=== PATIENT | male | born 1985 | race Caucasian/White ===

== ENCOUNTER 2019-12-20 08:35 | Emergency (ER) | payer SELFPAY ==
[~2019-12-20] VITALS: Ht 180.3 cm; Wt 79.0 kg
[2019-12-20 09:08] VITALS: BP 139/71
[2019-12-20] MEDS ORDERED: SULF1TAB49 PO (12:13)
[2019-12-20] MEDS ORDERED: CEPH500C5 PO (12:13)
[2019-12-20] MEDS ORDERED: NO HOME MEDS (12:42)
== END 2019-12-20 09:19 | disposition left against medical advice (07) ==
LOC: ER 08:35
DX: L03.113 Cellulitis of right upper limb (principal); R50.9 Fever, unspecified; R05 Cough; F15.90 Other stimulant use, unspecified, uncomplicated; Z59.0 Homelessness
CPT/HCPCS: 99281

== ENCOUNTER 2025-08-16 18:48 | Emergency (ER) | payer MEDICARE, MEDICAID ==
[~2025-08-16] VITALS: Ht 180.3 cm; Wt 142.2 kg
[~2025-08-16 18:48] MED LIST: HYDR-4383 PO
--- NOTE | 2025-08-16 20:39 | RADIOLOGY REPORT ---
EXAM: DI CHEST,SINGLE VIEW HISTORY: [facility] TECHNIQUE: 1 view of the chest COMPARISON: None FINDINGS/IMPRESSION: LUNGS: No pleural effusion, consolidation, or pneumothorax. MEDIASTINUM: Unremarkable. BONES: No acute osseous abnormality. OTHER: None.
--- NOTE | 2025-08-16 21:13 | Physician Documentation ---
History of Present Illness ~ Chief Complaint: Cold, cough & congestion Stated Complaint: LUNG PAIN Time Seen by MD: 21:11 Primary Medical Doctor: CECI MCKEON Mode of Arrival: POV HPI Patient presents to the emergency room with a cough cold and congestion. He states he has seen by his primary a couple of weeks ago and was prescribed an antibiotic and feels it may have gotten better but then symptoms returned. He states he normally smokes and vapes but quit this past month because of his cough. Cough has been going on for a month. Medication Reconciliation Allergies: Coded Allergies: No Known Allergies (Unverified , 08/16/25) Scheduled PRN Hydrocodone/Acetaminophen ([place] 5-325 Tablet), 1 TAB PO Q6H PRN for moderate pain 4-6 Past Medical History Past Medical History: No Pertinent History Past Surgical History: no surgical history Drug Use: methamphetamine Lives In: Homeless Review of Systems ROS All review of systems negative except as per HPI Physical Exam Vital Signs: Temperature: 98.2, Source: Oral, Heart Rate: 92, Respiratory Rate: 16, BP: 144/91, Pulse Oximetry: 98, Weight: 142.200 Oxygen Flow Rate: 0 Physical Exam General: Patient is awake, alert, oriented x4 in no acute distress and well appearing.~ Head: Normocephalic and atraumatic. Eyes: Conjunctival normal. EOMI. PERRL. ENT: Mucous membranes moist. Neck: Supple, trachea is midline. Chest: Clear to auscultation bilaterally without rales, rhonchi, or wheezes. There is no accessory muscle use or retractions. Cardiac: RRR without murmurs, gallops, or rubs. Progress Results/Orders Results/Orders Orders - JEZ KIM MD Chest,Single View (08/16/25 20:15) Completed Orders - JEZ KIM MD Chest,Single View (08/16/25 20:15) Vital Signs 08/16/25 08/16/25 08/16/25 18:54 20:39 20:39 Temp 98.2 98.2 Pulse 114 92 Resp 16 16 B/P (MAP) 132/91 144/91 (108) Pulse Ox 96 98 O2 Flow Rate 0 0 Laboratory Tests Test 08/16/25 19:03 Glucometer 344 H Medical Decision Making Additional information obtaine: old records Findings Patient presents to the emergency room with cough cold congestion. Actively sneezing and coughing while I am in the room. Chest x-ray is clear. He had not feel emergent labs are necessary. Given length of time and reported worsening symptoms I will treat with antibiotic. Differential Dx:Considerations: Include: Allergic rhinitis, Influenza, Otitis media, Peritonsillar abscess, Pharyngitis-Diphtheria, Pharyngitis-Streptoccal, Pharyngitis-Viral, Pneumonia, Pnuemonitis, Sinusitis, URI, Other Departure Disposition: HOME / SELF CARE / HOMELESS Impression: Primary Impression: Acute respiratory infection Condition: Stable Discharge Instructions: Upper Respiratory Infection, Adult Referrals: NO PRIMARY CARE PROVIDER (PCP) Prescriptions Levofloxacin (Levofloxacin) 500 Mg Tablet 1 TAB PO DAILY for 7 Days, #7 TAB Prov: JEZ KIM MD 08/16/25 Benzonatate* (Benzonatate*) 100 Mg Capsule 1 CAP PO Q8H for cough for 10 Days, #30 CAP Prov: JEZ KIM MD 08/16/25 Signature Scribe Signature: No scribe Attestation: The note accurately reflects work and decisions made by me.Jez Kim MD 08/16/25 21:21 JEZ KIM MD Aug 16, 2025 21:13
[2025-08-16] MEDS ORDERED: LEVO-65 PO (21:21)
[2025-08-16] MEDS ORDERED: BENZ-38 PO (21:21)
[2025-08-16 21:30] VITALS: BP 130/73; PULSE 91; RESP 16; TEMP 98.2; O2SAT 97
== END 2025-08-16 21:37 | disposition home or self-care (01) ==
LOC: ER 18:49
DX: J22 Unspecified acute lower respiratory infection (principal); Z79.899 Other long term (current) drug therapy
CPT/HCPCS: 71045; 82948; 99283